=== PATIENT | female | born 1960 | race Hispanic/Latino ===

== ENCOUNTER 2018-04-07 16:24 | Emergency (ER) | payer SELFPAY ==
[~2018-04-07 16:24] MED LIST: Dextrose 50% Abboject 50 ML SYRINGE ONE
[2018-04-07 16:48] LABS: #Basophils 0.1 thou/uL (0.0-0.2); #Eosinphils 0.4 thou/uL (0.0-0.7); #Lymphocytes 2.3 thou/uL (1.20-3.40); #Monocytes 0.8 thou/uL (0.11-0.59); #Neutrophils 3.2 thou/uL (1.40-6.50); %Basophils 1.7 % (0.0-1.0); %Eosinophils 5.4 % (0.0-10.0); %Lymphocytes 33.7 % (21.0-51.0); %Monocytes 12.1 % (0.0-10.0); %Neutrophils 47.1 % (42.0-75.0); Mean Corpuscular HGB CONC 31.5 g/dL (32.0-36.0); Mean Corpuscular Hemoglobin 27.1 pg (27.0-31.0); Mean Platelet Volume 6.6 fL (7.4-10.4); Platelet Count 276 thou/uL (130-400); RBC Distribution Width 12.8 % (11.5-14.5); Red Blood Cell (RBC) Count 3.71 mill/uL (4.20-5.40); White Blood Cell (WBC) Count 6.8 thou/uL (4.8-10.8)
[2018-04-07 17:00] LABS: ALT (SGPT) 15 U/L (8-55); AST (SGOT) 19 U/L (5-34); Albumin 3.6 g/dL (3.5-5.0); Alkaline Phosphatase 78 U/L (40-150); Anion Gap 14 mmol/L (10-20); BUN (Urea Nitrogen) 30 mg/dL (9.8-20.1); Bilirubin, Total 0.2 mg/dL (0.2-1.2); Calc. Creatinine Clearance 0 mL/min (70-130); Calcium 8.8 mg/dL (7.8-10.44); Carbon Dioxide 22 mmol/L (22-29); Chloride 107 mmol/L (98-107); Estimated GFR-MDRD 43; Globulin 2.8 g/dL (2.4-3.5); Potassium 4.7 mmol/L (3.5-5.1); Protein, Total 6.4 g/dL (6.0-8.3); Sodium 138 mmol/L (136-145)
[2018-04-07 17:02] LABS: CKMB 2.2 ng/mL (0-6.6); Troponin I 0.018 ng/mL (< 0.028)
[2018-04-07 17:05] LABS: Glucose 25 mg/dL (70-105)
[2018-04-07 17:09] LABS: Bilirubin Negative (Negative); Blood, Urine Negative (Negative); Clarity Clear (Clear); Glucose, Urine (Dipstick) 100 mg/dL (Negative); Leukocyte Trace (Negative); Nitrite Negative (Negative); Protein, Urine (Dipstick) 100 mg/dL (Neg-Trace); Urobilinogen 0.2 mg/dL (0.2-1.0)
[2018-04-07 17:20] LABS: Bacteria/HPF Rare-Few HPF (None Seen); RBC/HPF None Seen HPF (0-3); Squamous Epithelial 0-3 HPF (0-3); WBC/HPF 0-3 HPF (0-3); Yeast-All Forms Rare HPF (None Seen)
--- NOTE | 2018-04-07 17:28 | CT ---
HEAD CT WITHOUT CONTRAST: Date: 04/07/18 COMPARISON: None. HISTORY: Altered mental status, seizures, hypoglycemia. TECHNIQUE: Serial axial CT imaging is obtained at 5 mm intervals from the vertex through the skull base without contrast. FINDINGS: Imaged paranasal sinuses/mastoid air cells appear well aerated. There is no displaced calvarial fract ure. There is no intracranial hemorrhage evident. The lateral ventricles and the third ventricle are mildl y prominent. The fourth ventricle appears of normal size. There is slight crowding at the level of th e foramen magnum, which may signify a Chiari I malformation. Follow-up brain MRI is suggested on a no nemergent basis, unless clinically indicated sooner given history of seizures. No midline shift is noted. IMPRESSION: Mild prominence of the third ventricle and lateral ventricles, significance uncertain. Question Chiar i I malformation. Follow-up nonemergent brain MRI is suggested, unless clinically indicated sooner. N o intracranial hemorrhage, midline shift, or mass effect. POS: [facility]
== END 2018-04-07 19:22 | disposition short-term general hospital (02) ==
LOC: MADERS 16:24
DX: E11.649 Type 2 diabetes mellitus with hypoglycemia without coma (principal); E05.90 Thyrotoxicosis, unspecified without thyrotoxic crisis or storm; Z79.899 Other long term (current) drug therapy
CPT/HCPCS: 36416; 70450; 80053; 81003; 81015; 82553; 83735; 84443; 84484; 85025; 93005; 96374

== ENCOUNTER 2019-10-13 15:36 | Emergency (ER) | payer OTHER ==
[2019-10-13] MEDS ORDERED: Lidocaine 2% w/Epinephrine 1:200K 20 ML VIAL ONE (16:36)
[2019-10-13] MEDS ORDERED: Aspirin 325 MG TAB ONE (16:36)
[2019-10-13] MEDS ORDERED: Adacel (T-DAP) 0.5 ML SYRINGE ONE (16:36)
[2019-10-13] MEDS ORDERED: Lidocaine 1% w/Epinephrine 1:100K 20 ML VIAL ONE (16:49)
[2019-10-13 16:51] LABS: #Basophils 0.1 thou/uL (0.0-0.2); #Eosinphils 0.6 thou/uL (0.0-0.7); #Lymphocytes 2.3 thou/uL (1.20-3.40); #Monocytes 0.6 thou/uL (0.11-0.59); #Neutrophils 5.7 thou/uL (1.40-6.50); %Basophils 0.9 % (0.0-1.0); %Eosinophils 6.5 % (0.0-10.0); %Lymphocytes 25.2 % (21.0-51.0); %Neutrophils 61.5 % (42.0-75.0); Hemoglobin 11.5 g/dL (12.0-16.0); Mean Corpuscular HGB CONC 30.8 g/dL (32.0-36.0); Mean Corpuscular Hemoglobin 27.8 pg (27.0-31.0); Mean Corpuscular Volume 90.2 fL (78.0-98.0); Mean Platelet Volume 7.9 fL (7.4-10.4); Platelet Count 359 thou/uL (130-400); RBC Distribution Width 12.4 % (11.5-14.5); Red Blood Cell (RBC) Count 4.12 mill/uL (4.20-5.40); White Blood Cell (WBC) Count 9.2 thou/uL (4.8-10.8)
--- NOTE | 2019-10-13 16:54 | RAD ---
RADIOGRAPH CHEST 1 VIEW: 10/13/19 HISTORY: 59-year-old female with chest pain. FINDINGS: There are no air space densities, pulmonary edema, pneumothorax, or cardiomegaly. The lateral costop hrenic angles are sharp. IMPRESSION: No acute cardiopulmonary findings. jn [] POS: [facility]
[2019-10-13 16:57] LABS: ALT (SGPT) 34 U/L (8-55); AST (SGOT) 30 U/L (5-34); Albumin 3.6 g/dL (3.5-5.0); Alkaline Phosphatase 88 U/L (40-110); Anion Gap 16 mmol/L (10-20); BUN (Urea Nitrogen) 20 mg/dL (9.8-20.1); Bilirubin, Total 0.2 mg/dL (0.2-1.2); CK (CPK) 109 U/L (29-168); Calc. Creatinine Clearance 0 mL/min (70-130); Calcium 8.9 mg/dL (7.8-10.44); Carbon Dioxide 22 mmol/L (22-29); Chloride 102 mmol/L (98-107); Estimated GFR-MDRD 58; Glucose 293 mg/dL (70-105); Lipase 23 U/L (8-78); Potassium 4.6 mmol/L (3.5-5.1); Protein, Total 6.6 g/dL (6.0-8.3); Sodium 135 mmol/L (136-145)
[2019-10-13] MEDS ORDERED: Bacitracin 1 PK ONE (17:07)
== END 2019-10-13 17:19 | disposition home or self-care (01) ==
LOC: MADERS 15:36
DX: S61.412A Laceration without foreign body of left hand, initial encounter (principal); R07.9 Chest pain, unspecified; E78.5 Hyperlipidemia, unspecified; I10 Essential (primary) hypertension; E11.9 Type 2 diabetes mellitus without complications; F41.9 Anxiety disorder, unspecified; F32.9 Major depressive disorder, single episode, unspecified; Z79.4 Long term (current) use of insulin; Z79.899 Other long term (current) drug therapy; W26.0XXA Contact with knife, initial encounter
CPT/HCPCS: 12002; 71045; 80053; 82550; 83690; 84484; 85025; 90471; 90715; 93005

== ENCOUNTER 2019-10-22 10:55 | Emergency (ER) | payer OTHER, SELFPAY ==
[2019-10-22] MEDS ORDERED: Bacitracin 1 PK ONE (11:53)
== END 2019-10-22 12:05 | disposition home or self-care (01) ==
LOC: MADERS 10:55
DX: T81.40XA Infection following a procedure, unspecified, initial encounter (principal); T81.33XA Disruption of traumatic injury wound repair, initial encounter; E11.9 Type 2 diabetes mellitus without complications; E78.5 Hyperlipidemia, unspecified; I10 Essential (primary) hypertension; F41.9 Anxiety disorder, unspecified; F32.9 Major depressive disorder, single episode, unspecified; Z79.84 Long term (current) use of oral hypoglycemic drugs; Z79.899 Other long term (current) drug therapy
CPT/HCPCS: 99282

== ENCOUNTER 2019-12-30 18:31 | Emergency (ER) | payer SELFPAY ==
[~2019-12-30 18:31] MED LIST changes: -Dextrose 50% Abboject 50 ML SYRINGE ONE; +Iopamidol 370 76% 125 ML VIAL FS ONE
[2019-12-30] MEDS ORDERED: Aspirin Chewable 81 MG TAB ONE (18:54)
[2019-12-30] MEDS ORDERED: Metoprolol Tartrate 5 MG/5 ML VIAL ONE ×2 (18:54→20:39)
[2019-12-30 18:58] LABS: #Basophils 0.1 thou/uL (0.0-0.2); #Eosinphils 0.3 thou/uL (0.0-0.7); #Lymphocytes 2.1 thou/uL (1.20-3.40); #Monocytes 0.4 thou/uL (0.11-0.59); #Neutrophils 3.6 thou/uL (1.40-6.50); %Basophils 1.4 % (0.0-1.0); %Lymphocytes 32.5 % (21.0-51.0); %Neutrophils 55.2 % (42.0-75.0); Hemoglobin 11.6 g/dL (12.0-16.0); Mean Corpuscular HGB CONC 31.8 g/dL (32.0-36.0); Mean Corpuscular Hemoglobin 28.8 pg (27.0-31.0); Mean Corpuscular Volume 90.5 fL (78.0-98.0); Platelet Count 240 thou/uL (130-400); Red Blood Cell (RBC) Count 4.02 mill/uL (4.20-5.40); White Blood Cell (WBC) Count 6.4 thou/uL (4.8-10.8)
[2019-12-30 19:18] LABS: ALT (SGPT) 31 U/L (8-55); AST (SGOT) 23 U/L (5-34); Albumin 4.4 g/dL (3.5-5.0); Alkaline Phosphatase 120 U/L (40-110); Anion Gap 18 mmol/L (10-20); BUN (Urea Nitrogen) 23 mg/dL (9.8-20.1); Bilirubin, Total 0.2 mg/dL (0.2-1.2); Calc. Creatinine Clearance 0 mL/min (70-130); Calcium 9.4 mg/dL (7.8-10.44); Carbon Dioxide 22 mmol/L (22-29); Chloride 96 mmol/L (98-107); Estimated GFR-MDRD 47; Globulin 2.9 g/dL (2.4-3.5); Glucose 479 mg/dL (70-105); Lipase 17 U/L (8-78); Potassium 4.2 mmol/L (3.5-5.1); Protein, Total 7.3 g/dL (6.0-8.3); Sodium 132 mmol/L (136-145)
--- NOTE | 2019-12-30 19:18 | RAD ---
RADIOGRAPH CHEST 1 VIEW: DATE: 12/30/2019 HISTORY: 59-year-old female with chest pain FINDINGS: There are no airspace densities, pulmonary edema, pneumothorax, or cardiomegaly. The lateral costophr enic angles are sharp. IMPRESSION: No acute cardiopulmonary findings.
[2019-12-30 19:41] LABS: Amphetamine Not Detected (NotDetected); Barbiturates Screen Not Detected (NotDetected); Benzodiazepine Screen Not Detected (NotDetected); Cocaine Metabolite Screen Not Detected (NotDetected); Medtox Control Line Valid? VALID (VALID); Methadone Not Detected (NotDetected); Methamphetamine Not Detected (NotDetected); Opiate Screen Detected (NotDetected); Oxycodone Screen Not Detected (NotDetected); Phencyclidine (PCP) Not Detected (NotDetected); THC/Cannabinoid Screen Not Detected (NotDetected); Tricyclic Screen Not Detected (NotDetected)
--- NOTE | 2019-12-30 20:34 | CT ---
CT ANGIOGRAM THORAX WITH CONTRAST: (CTA pulmonary angiogram) DATE: 12/30/2019 HISTORY: 59-year-old female with tachycardia, chest pain, and elevated d-dimer TECHNIQUE: IV injection of iodinated contrast. Scan acquisition timing attempted to coincide with iodinated contrast bolus reaching maximal density in pulmonary arteries. 3-D MIP reconstructions. FINDINGS: Images of lower lobes degraded by patient breathing motion artifact. Pulmonary thromboembolism: None. Lungs: No consolidation or edema. Pneumothorax: None. Pleural effusion: None. Left and right main pulmonary arteries, and proximal branches, are dilated. Trachea and major bronchi: No stenosis. Heart: No cardiomegaly, and no pericardial effusion. Thoracic aorta: Tortuosity. No dissection or aneurysm. Atherosclerosis. Mediastinum and eric: No lymphadenopathy. IMPRESSION: 1. No evidence of pulmonary thromboembolism. 2. Dilated central pulmonary arteries, raising the possibility of pulmonary arterial hypertension.
[2019-12-30] MEDS ORDERED: Insulin Regular 300 UNITS/3 ML VIAL ONE (21:12)
[2019-12-30] MEDS ORDERED: Nitroglycerin 2% Ointment 1 INCH/1 GM Packet ONE (21:12)
== END 2019-12-30 21:35 | disposition short-term general hospital (02) ==
LOC: MADERS 18:31
DX: R07.9 Chest pain, unspecified (principal); E11.65 Type 2 diabetes mellitus with hyperglycemia; E78.5 Hyperlipidemia, unspecified; F41.9 Anxiety disorder, unspecified; F32.9 Major depressive disorder, single episode, unspecified; Z79.84 Long term (current) use of oral hypoglycemic drugs
CPT/HCPCS: 71045; 71275; 80053; 80306; 83690; 84484; 85025; 85379; 93005; 94760; 96374; 96375; J1815; Q9967